=== PATIENT | male | born 1980 | race Asian ===

== ENCOUNTER 2017-11-26 19:41 | Emergency (ER) | END 2017-11-26 21:10 | disposition left against medical advice (07) ==

== ENCOUNTER 2019-04-28 05:18 | Day surgery (SDC) | payer OTHER ==
[~2019-04-28] VITALS: Ht 160 cm; Wt 69.2 kg
[2019-04-28] VITALS (12 sets, daily range): BP systolic 127–150; BP diastolic 77–100; PULSE 56–64; RESP 15–23; Ht 160 cm; Wt 69.2 kg
[2019-04-28] MEDS ORDERED: SOD CHLORIDE 0.9% 1,000 ML IV ONE (05:30)
[2019-04-28] MEDS ORDERED: CEFAZOLIN 2 GM/50 ML (PMX) 50 ML IVPB ONE (05:30)
--- NOTE | 2019-04-28 07:17 | PREAC ---
Date/Time of Note Date/Time of Note DATE: 04/28/19 TIME: 07:16 Anesthesia Eval and Record Evaluation Time Pre-Procedure Interview DATE: 04/28/19 TIME: 07:16 Age 39 Sex male NPO: 8 hrs Preoperative diagnosis Gallstones/polyps Planned procedure Lap Vanessa Past Medical History Past Medical History: Includes Cardio: HTN Surgery & Anesthesia Issues No known issue Meds Anticoagulation: No Beta Froilan within 24 hr: No Reason Beta Froilan not given: Pt. not on B-Froilan Current Medications Sodium Chloride 1,000 ml @ 75 mls/hr [id number] ONCE IV Last administered on 04/28/19at 07:12; Admin Dose 75 MLS/HR; Start 04/28/19 at 05:30; Stop 04/28/19 at 18:49 Meds reviewed: Yes Allergies Coded Allergies: No Known Allergy (Unverified , 04/28/19) Allergies Reviewed: Yes Labs/Studies Labs Reviewed: Reviewed by anesthesiologist test: N/A Pre-procedure Exam Last vitals Vital Signs Date Temp Pulse Resp B/P (MAP) Pulse Ox O2 O2 Flow FiO2 Time Delivery Rate 04/28/19 98.4 59 18 127/91 98 Room Air 06:56 (103) Airway: Adequate mouth opening, Adequate thyromental dist Mallampati: Mallampati II Teeth: Normal Lung: Normal Heart: Normal ASA Physical Status ASA physical status: 2 Emergency: None Planned Anesthetic General/MAC: ETT Nerve block: TAP (bilateral) Pre-operative Attestations Prior to commencing anesthesia and surgery, the patient was re-evaluated, there was verification of: *The patient's identity *The results of appropriate recent lab work and preoperative vital signs *The above evaluation not changing prior to induction *Anesthetic plan, risk benefits, alternative and complications discussed with patient/family; questions answered; patient/family understands, accepts and wishes to proceed. ENIO GOLDBERG Apr 28, 2019 07:17
[2019-04-28] MEDS ORDERED: GARL100T PO (07:21)
[2019-04-28] MEDS ORDERED: ATOR10TA65 ORAL (07:21)
[2019-04-28] MEDS ORDERED: GINK120T3 PO (07:21)
[2019-04-28] MEDS ORDERED: HYDR12.53 ORAL (07:21)
[2019-04-28] MEDS ORDERED: TURM500C7 PO (07:21)
[2019-04-28] MEDS ORDERED: MULTI PO (07:21)
[2019-04-28] MEDS ORDERED: CHOL100062 PO (07:21)
[2019-04-28] MEDS ORDERED: OMEG-179 PO (07:21)
[2019-04-28] MEDS ORDERED: HYDROmorphONE 1 MG/5 ML IV SYRINGE IV PRN ×2 (07:30)
[2019-04-28] MEDS ORDERED: MEPERIDINE 25 MG INJ IV PRN (07:30)
[2019-04-28] MEDS ORDERED: ALBUTEROL 0.083% (NEB) 2.5 MG/3 ML AMP HHN PRN (07:30)
[2019-04-28] MEDS ORDERED: ONDANSETRON 4 MG INJ IV PRN (07:30)
[2019-04-28] MEDS ORDERED: METOCLOPRAMIDE 10 MG INJ IV PRN (07:30)
[2019-04-28] MEDS ORDERED: DIPHENHYDRAMINE 50 MG INJ IV PRN (07:30)
[2019-04-28] MEDS ORDERED: FENTAnyl 50 MCG/ML VIAL IV PRN ×3 (07:30)
[2019-04-28] MEDS ORDERED: ROCURONIUM 50 MG INJ ONE (08:00)
[2019-04-28] MEDS ORDERED: FENTAnyl 50 MCG/ML VIAL ONE (08:07)
[2019-04-28] MEDS ORDERED: ROPIVACAINE 0.5 % 30 ML VIAL ONE (08:09)
[2019-04-28] MEDS ORDERED: CEFAZOLIN 1 GM INJ ONE (08:32)
[2019-04-28] MEDS ORDERED: PROPOFOL 20 ML ONE (08:32)
[2019-04-28] MEDS ORDERED: SUCCINYLCHOLINE CHLORIDE 100 MG/5 ML SYG IV ONE (08:32)
[2019-04-28] MEDS ORDERED: LIDOCAINE 100 MG SYRINGE ONE (08:33)
[2019-04-28] MEDS ORDERED: LABETALOL HCL 20MG INJ ONE (08:47)
[2019-04-28] MEDS ORDERED: SUGAMMADEX SODIUM 200 MG/2 ML VIAL IV ONE (08:47)
--- NOTE | 2019-04-28 08:56 | OPR ---
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 He has been having serial imaging and has had some changes and a recommendation was made to perform a laparoscopic cholecystectomy to avoid more serial imaging and monitoring. Patient was also concerned about gallbladder polyps and one his gallbladder polyp. Risks alternatives benefits and personal were discussed the patient. Potential complications include but not limited to bleeding infection common bile duct injury injury to surrounding structures were discussed the patient. Patient expressed understanding and consents to the operation. Procedure Description Patient is taken to the OR and prepped and draped in usual sterile fashion. Surgical timeout is performed. IV antibiotics given. Infraumbilical transverse incision was made at the 15 blade. Dissection with cautery was carried onto the fascia. The fascia was grasped with [place]'s and divided with curved Sheikh scissors. 0 Vicryl use this was placed into the fascia. Patel trocar was introduced. Pneumoperitoneum was established. Midepigastric 12 mm optical trochars placed under direct visualization. Right upper quadrant right upper flank 5 mm optical trochars were placed under direct visualization. Upon initial inspection the gallbladder had adhesions and evidence of chronic cholecystitis. These adhesions were taken down bluntly. The gallbladder was also distended. The gallbladder was fundus was grasped and retracted and lateral cephalad direction. [place] graspers used to dissect out the cystic duct and cystic artery. The critical view was established. The cystic duct is divided with 3 clips proximal and one clip distal and the divisions performed with laparoscopic scissors. Cystic artery was divided with three clips proximal and one clip distal and the divisions performed lap scopic scissors. The gallbladder is retrieved Endo Catch bag. Good hemostasis status. All ports were removed under direct visualization. 0 Vicryl sutures tied down. Skin is closed and skin aazlia. A tap block was provided the anesthesiologist at the beginning the case. Dry dressings were applied. Eric PARKER Apr 28, 2019 08:56
[2019-04-28] MEDS ORDERED: HYDROCODONE/APAP (5/325) TAB PO ONE (09:00)
[2019-04-28] MEDS: HYDROmorphONE 1 MG/5 ML IV SYRINGE IV PRN ×2 (09:17→09:36)
--- NOTE | 2019-04-29 07:20 | PAC ---
Date/Time of Note Date/Time of Note DATE: 04/29/19 TIME: 07:20 Post-Anesthesia Notes Post-Anesthesia Note Last documented vital signs Vital Signs Date Temp Pulse Resp B/P (MAP) Pulse Ox O2 O2 Flow FiO2 Time Delivery Rate 04/28/19 98.0 10:01 04/28/19 56 18 137/88 100 10:00 (104) 04/28/19 Room Air 09:55 04/28/19 6.0 09:10 Activity: WNL Respiratory function: WNL Cardiovascular function: WNL Mental status: Baseline Pain reasonably controlled: Yes Hydration appropriate: Yes Nausea/Vomiting absent: Yes ENIO GOLDBERG Apr 29, 2019 07:20
== END 2019-04-28 10:43 | disposition home or self-care (01) ==
LOC: SDS 05:18
PROVIDERS: ATTEND Surgery
DX: K80.10 Calculus of gallbladder with chronic cholecystitis without obstruction (principal); I10 Essential (primary) hypertension
CPT/HCPCS: 47562; 80053; 85025; 85610; 85730; 88304; J0690; J1170; J2001; J2405; J2795; J3010